=== PATIENT | female | born 1985 | race Caucasian/White ===

== ENCOUNTER 2017-03-02 15:24 | Emergency (ER) | payer SELFPAY ==
[~2017-03-02] VITALS: Ht 160 cm; Wt 78.9 kg
[~2017-03-02 15:24] MED LIST: AMOX500C2 PO; BENZ200C25 PO; CEPH250C PO; DOCU100C37 PO; DOXY100T2 PO; IBP800T PO; METR500T21 PO; NITR-65 PO; NITR100C PO; Oxycodone Hcl PO; PREN1TAB4 PO
[2017-03-02] MEDS ORDERED: FAMOTIDINE 20 MG (PEPCID) TABLET PO STA (15:46)
[2017-03-02] MEDS ORDERED: ANTACID SUSP 30 ML UDC (MYLANTA) PO ONE (16:00)
[2017-03-02] MEDS ORDERED: LIDOCAINE 2% VISCOUS 15 ML UDC PO ONE (16:00)
[2017-03-02 16:10] LABS: BILIRUBIN,URINE NEGATIVE (NEGATIVE); KETONES,URINE NEGATIVE (NEGATIVE); LEUKOCYTE ESTERASE ,URINE 2+ (NEGATIVE); NITRITE,URINE NEGATIVE (NEGATIVE); PH,URINE 5 (5-9); PROTEIN,URINE NEGATIVE (NEGATIVE); UROBILINOGEN,URINE NORMAL (NORMAL)
[2017-03-02 16:11] LABS: BASOPHILS % (AUTO) 0 % (0-10); EOSINOPHILS # (AUTO) 0.2 10^3/uL (0.0-0.3); EOSINOPHILS % (AUTO) 2 % (0-10); LYMPHOCYTES # (AUTO) 1.9 X 10^3 (1.0-4.0); LYMPHOCYTES % (AUTO) 24 % (12-44); MEAN CORPUSCULAR HEMOGLOBIN 31 PG (25-34); MEAN CORPUSCULAR HGB CONC 33 G/DL (32-36); MEAN CORPUSCULAR VOLUME 94 FL (80-99); MEAN PLATELET VOLUME 12.9 FL (7.4-10.4); MONOCYTES # (AUTO) 0.5 X 10^3 (0.0-1.0); MONOCYTES % (AUTO) 6 % (0-12); NEUTROPHILS # (AUTO) 5.3 X 10^3 (1.8-7.8); NEUTROPHILS % (AUTO) 68 % (42-75); PLATELET COUNT 217 10^3/uL (130-400); RED BLOOD COUNT 4.29 10^6/uL (4.35-5.85); RED CELL DISTRIBUTION WIDTH 12.8 % (10.0-14.5); WHITE BLOOD COUNT 7.9 10^3/uL (4.3-11.0)
[2017-03-02 16:20] LABS: ALANINE AMINOTRANSFERASE 38 U/L (0-55); ALBUMIN 4.3 GM/DL (3.2-4.5); ANION GAP 9 MMOL/L (5-14); ASPARTATE AMINO TRANSFERASE 23 U/L (5-34); BILIRUBIN,TOTAL 1.8 MG/DL (0.1-1.0); BLOOD UREA NITROGEN 17 MG/DL (7-18); BUN/CREATININE RATIO 23; CALCIUM 9.5 MG/DL (8.5-10.1); CARBON DIOXIDE 26 MMOL/L (21-32); CHLORIDE 106 MMOL/L (98-107); CREATININE SERUM 0.74 MG/DL (0.60-1.30); GFR ESTIMATED > 60; GLUCOSE 93 MG/DL (70-105); LIPASE 25 U/L (8-78); POTASSIUM 3.8 MMOL/L (3.6-5.0); SODIUM 141 MMOL/L (135-145); TOTAL PROTEIN 7.2 GM/DL (6.4-8.2)
[2017-03-02 16:26] LABS: SQUAMOUS EPITHELIAL CELL,UR 25-50 /HPF
[2017-03-02] MEDS ORDERED: OMEP20TA7 PO (16:45)
--- NOTE | 2017-03-02 16:45 | ED Abdominal Pain ---
General Chief Complaint: Abdominal/GI Problems Stated Complaint: ABDOMINAL PAIN Nursing Triage Note: PT CO OF ABD PAIN TO EPIGASTRIC AREA THRU TO BACK, AFTER EATING PIZZA TODAY, PT STATES HAS HAD DIARREHA FOR A WEEK AND STARTED FEELING SICK ON MONDAY Sepsis Screen: No Definite Risk Source of Information: Patient Exam Limitations: No Limitations History of Present Illness Time Seen By Provider: 15:40 Initial Comments This 31-year-old woman presents to emergency room with complaints of right upper quadrant and epigastric pain radiating to the back and chest. Pain started just after eating pizza today. Pain has been intermittent over the past week and seems to be associated with eating. She has had some nausea without vomiting. She did have some diarrhea with prior episodes. LMP was 3 weeks ago and she denies . Pain was 5 out of 10 earlier today and is now 2 out of 10. Allergies and Home Medications Allergies Coded Allergies: No Known Drug Allergies (Verified , 11/21/15) Home Medications Omeprazole 20 Mg Tablet.dr, 20 MG PO BID, #30 Prescribed by: LIZY CASTANEDA on 03/02/17 7117 Review of Systems Constitutional: no symptoms reported EENTM: No Symptoms Reported Respiratory: No Symptoms Reported Cardiovascular: No Symptoms Reported Gastrointestinal: See HPI Genitourinary: No Symptoms Reported Musculoskeletal: no symptoms reported Skin: no symptoms reported Psychiatric/Neurological: No Symptoms Reported Endocrine: No Symptoms Reported Past Sysbynz-Tipwej-Iuzuss Hx Patient Social History Alcohol Use: Occasionally Uses Recreational Drug Use: No Smoking Status: Current Everyday Smoker Recent Foreign Travel: No Contact w/Someone Who Travel: No Recent Infectious Disease Expo: No Recent Hopitalizations: No Immunizations Up To Date Tetanus Booster (TDap): Unknown Surgeries HX Surgeries: Yes ( x 2 and CKC) Surgeries: Abdominal (Left salpingo-oophorectomy for tubo-ovarian cyst), Section Respiratory Hx Respiratory Disorders: No Cardiovascular Hx Cardiac Disorders: No Neurological Hx Neurological Disorders: No Reproductive System Hx Reproductive Disorders: Yes Sexually Transmitted Disease: Yes (HPV, HSV, chlamydia) Genitourinary Hx Genitourinary Disorders: No Gastrointestinal Hx Gastrointestinal Disorders: No Musculoskeletal Hx Musculoskeletal Disorders: No Endocrine Hx Endocrine Disorders: No HEENT HX ENT Disorders: No Cancer Hx Cancer: No Psychosocial Hx Psychiatric Problems: No Integumentary HX Skin/Integumentary Disorder: Yes Skin/Integumentary Disorders: Herpes Blood Transfusions Hx Blood Disorders: No Adverse Reaction to a Blood Tr: No Family Medical History Significant Family History: No Pertinent Family Hx Family Medial History: Anxiety disorder G8 SISTER Diabetes mellitus 19 FATHER FH: anemia G8 SISTER FHx: lung disease 19 MOTHER Psychiatric condition G8 SISTER Physical Exam Vital Signs VS - Last 72 Hours, by Label 03/02/17 03/02/17 15:35 16:51 Temp 98.1 Pulse 85 77 Resp 18 16 B/P (MAP) 143/78 Pulse Ox 98 99 O2 Delivery Room Air Capillary Refill : Less Than 3 Seconds General Appearance: WD/WN, no apparent distress HEENT: PERRL/EOMI, normal ENT inspection, pharynx normal Neck: normal inspection Respiratory: lungs clear, normal breath sounds, no respiratory distress, no accessory muscle use Cardiovascular: regular rate, rhythm, no edema, no murmur Gastrointestinal: normal bowel sounds, soft, no organomegaly, tenderness ( Epigastrium) Extremities: normal inspection, no pedal edema Neurologic/Psychiatric: rv repairer II-XII nml as tested, no motor/sensory deficits, alert, normal mood/affect, oriented x 3 Skin: normal color, warm/dry Progress/Results/Core Measures Results/Orders Lab Results Laboratory Tests Test 03/02/17 15:35 03/02/17 15:45 Range/Units Urine Color YELLOW Urine Clarity SLIGHTLY CLOUDY Urine pH 5 5-9 Urine Specific [place] 1.025 H 1.016-1.022 Urine Protein NEGATIVE NEGATIVE Urine Glucose (UA) NEGATIVE NEGATIVE Urine Ketones NEGATIVE NEGATIVE Urine Nitrite NEGATIVE NEGATIVE Urine Bilirubin NEGATIVE NEGATIVE Urine Urobilinogen NORMAL NORMAL MG/DL Urine Leukocyte Esterase 2+ H NEGATIVE Urine RBC (Auto) 1+ H NEGATIVE Urine RBC RARE /HPF Urine WBC 2-5 /HPF Urine Squamous Epithelial Cells 25-50 H /HPF Urine Crystals NONE /LPF Urine Bacteria LARGE H /HPF Urine Casts NONE /LPF Urine Mucus NEGATIVE /LPF Urine Culture Indicated YES White Blood Count 7.9 4.3-11.0 10^3/uL Red Blood Count 4.29 L 4.35-5.85 10^6/uL Hemoglobin 13.3 11.5-16.0 G/DL Hematocrit 40 35-52 % Mean Corpuscular Volume 94 80-99 FL Mean Corpuscular Hemoglobin 31 25-34 PG Mean Corpuscular Hemoglobin Concent 33 32-36 G/DL Red Cell Distribution Width 12.8 10.0-14.5 % Platelet Count 217 130-400 10^3/uL Mean Platelet Volume 12.9 H 7.4-10.4 FL Neutrophils (%) (Auto) 68 42-75 % Lymphocytes (%) (Auto) 24 12-44 % Monocytes (%) (Auto) 6 0-12 % Eosinophils (%) (Auto) 2 0-10 % Basophils (%) (Auto) 0 0-10 % Neutrophils # (Auto) 5.3 1.8-7.8 X 10^3 Lymphocytes # (Auto) 1.9 1.0-4.0 X 10^3 Monocytes # (Auto) 0.5 0.0-1.0 X 10^3 Eosinophils # (Auto) 0.2 0.0-0.3 10^3/uL Basophils # (Auto) 0.0 0.0-0.1 10^3/uL Sodium Level 141 135-145 MMOL/L Potassium Level 3.8 3.6-5.0 MMOL/L Chloride Level 106 98-107 MMOL/L Carbon Dioxide Level 26 21-32 MMOL/L Anion Gap 9 5-14 MMOL/L Blood Urea Nitrogen 17 7-18 MG/DL Creatinine 0.74 0.60-1.30 MG/DL Estimat Glomerular Filtration Rate > 60 BUN/Creatinine Ratio 23 Glucose Level 93 70-105 MG/DL Calcium Level 9.5 8.5-10.1 MG/DL Total Bilirubin 1.8 H 0.1-1.0 MG/DL Aspartate Amino Transf (AST/SGOT) 23 5-34 U/L Alanine Aminotransferase (ALT/SGPT) 38 0-55 U/L Alkaline Phosphatase 55 40-136 U/L C-Reactive Protein High Sensitivity 0.40 0.00-0.50 MG/DL Total Protein 7.2 6.4-8.2 GM/DL Albumin 4.3 3.2-4.5 GM/DL Lipase 25 8-78 U/L Serum Test, Qualitative NEGATIVE NEGATIVE Micro Results Microbiology 03/02/17 Urine Culture - Preliminary, Resulted My Orders Orders - LIZY GUAJARDO MD Cbc With Automated Diff (03/02/17 15:46) Comprehensive Metabolic Panel (03/02/17 15:46) Hs C Reactive Protein (03/02/17 15:46) Hcg,Qualitative Serum (03/02/17 15:46) Ua Culture If Indicated (03/02/17 15:46) Saline Lock/Iv-Start (03/02/17 15:46) Lipase (03/02/17 15:46) Lidocaine 2% Viscous 15 Ml (Xylocaine Vi (03/02/17 16:00) Famotidine Tablet (Pepcid Tablet) (03/02/17 15:46) Antacid Suspension (Mylanta Suspension (03/02/17 16:00) Urine Culture (03/02/17 15:35) Medications Given in ED Vital Signs/I&O Vital Sign - Last 12Hours 03/02/17 03/02/17 15:35 16:51 Temp 98.1 Pulse 85 77 Resp 18 16 B/P (MAP) 143/78 Pulse Ox 98 99 O2 Delivery Room Air Blood Pressure Mean: 99 Progress Note : Progress Note Pain and tenderness improved with GI cocktail and Pepcid suggesting gastritis. Workup was unremarkable. Patient was advised to continue workup as an outpatient and possibly obtain a gallbladder ultrasound. PPI therapy and dietary restrictions were discussed. Departure Impression Impression: Primary Impression: Epigastric pain Disposition: HOME, SELF-CARE Condition: Improved Departure-Patient Inst. Referrals: [facility] (PCP/Family) Primary Care Physician Patient Instructions: Acute Abdomen (Belly Pain), Adult (DC), Gastritis (DC) Add. Discharge Instructions: Use your antacid as prescribed for at least 2 weeks. Avoid the following: Eating large meals, eating close to bedtime, fatty or greasy foods, caffeine, carbonation, citrus fruits and juices, chocolate, tomato products, alcohol, tobacco, mint, NSAID medications such as ibuprofen or naproxen, spicy foods, or anything else you know irritates your stomach. Follow-up with your primary care provider. If you continue to have pain despite taking antacid medications, you may need an ultrasound of the gallbladder. Return to emergency room if symptoms worsen. All discharge instructions reviewed with patient and/or family. Voiced understanding. Scripts Omeprazole (Omeprazole) 20 Mg Tablet. 20 MG PO BID, #30 TAB Prov: LIZY GUAJARDO MD 03/02/17 LIZY GUAJARDO MD Mar 02, 2017 16:45
[2017-03-02 16:51] VITALS: BP 131/81
== END 2017-03-02 16:51 | disposition home or self-care (01) ==
LOC: EDUNIT# 15:24 → ER 15:26
DX: R10.13 Epigastric pain (principal); F17.210 Nicotine dependence, cigarettes, uncomplicated
CPT/HCPCS: 36415; 80053; 81000; 83690; 84703; 85025; 86141; 87088

== ENCOUNTER 2018-03-05 23:44 | Emergency (ER) | payer SELFPAY ==
[~2018-03-05] VITALS: Ht 160 cm; Wt 79.4 kg
[~2018-03-05 23:44] MED LIST changes: +OMEP20TA7 PO
--- OUTSIDE RECORDS SUMMARY | 2018-03-05 23:51 | XMS REPORT ---
Author Author ALEX WATTS Organization [employer] Address Unknown Phone Unavailable Care Team Providers Care Glassware Maker Name Role Phone ALEX WATTS CP Unavailable Allergies, Adverse Reactions, Alerts Substance Reaction Event Type N.K.D.A. Info Not Available Non Drug Allergy Problems Problem Type Condition ICD-9 Code Onset Dates Condition Status Assessment Gingivitis 523.10 Active Problem Rash and other nonspecific skin eruption 782.1 Active Medications No Known Medications Procedures Procedure Coding System Code Date Office Visit, Est Pt., Level 3 CPT-4 24218 Mar 18, 2015 Vital Signs Date/Time: Mar 18, 2015 Temperature 98.1 F Weight 147.0 lbs Height 62 in BMI 26.88 Index Blood Pressure Diastolic 88 mmHg Blood Pressure Systolic 134 mmHg Cardiac Monitoring Heart Rate 68 bpm Results No Known Results Summary Purpose [employer] Submission
--- OUTSIDE RECORDS SUMMARY | 2018-03-05 23:51 | XMS REPORT ---
Author Author ROSHAN REN Organization [employer] Address Unknown Phone Unavailable Care Team Providers Care Air Conditioning Supervisor Name Role Phone ROSHAN REN CP Unavailable Allergies No Known Allergies Problems Problem Type Condition ICD-9 Code Onset Dates Condition Status Assessment Dental examination V72.2 Active Problem Rash and other nonspecific skin eruption 782.1 Active Medications No Known Medications Procedures Procedure Coding System Code Date INTRAORL-PERIAPICAL 1 FILM 92761 CPT-4 D0220 Apr 01, 2015 INTRAORL-PERIAPICAL EA ADD FILM CPT-4 D0230 Apr 01, 2015 COMP ORAL EVALUATION - NEW/EST PT CPT-4 D0150 Apr 01, 2015 Periodontal scaling & root CPT-4 D4341 Apr 01, 2015 BITEWINGS - FOUR FILMS CPT-4 D0274 Apr 01, 2015 Periodontal scaling & root CPT-4 D4341 Apr 01, 2015 INTRAORL-PERIAPICAL EA ADD FILM CPT-4 D0230 Apr 01, 2015 INTRAORL-PERIAPICAL EA ADD FILM CPT-4 D0230 Apr 01, 2015 INTRAORL-PERIAPICAL EA ADD FILM CPT-4 D0230 Apr 01, 2015 INTRAORL-PERIAPICAL EA ADD FILM CPT-4 D0230 Apr 01, 2015 Results No Known Results Summary Purpose [employer] Submission
--- OUTSIDE RECORDS SUMMARY | 2018-03-05 23:51 | XMS REPORT ---
Author Author BISMARK BARRETO Organization [employer] Address Unknown Phone Unavailable Care Team Providers Care Landscape Architect Name Role Phone BISMARK BARRETO CP Unavailable Allergies, Adverse Reactions, Alerts Substance Reaction Event Type N.K.D.A. Info Not Available Non Drug Allergy Problems Problem Type Condition Code Onset Dates Condition Status Assessment Gastroenteritis K52.9 Active Problem Rash and other nonspecific skin eruption 782.1 Active Medications No Known Medications Procedures Procedure Coding System Code Date Office Visit, Est Pt., Level 3 CPT-4 97861 Sep 10, 2015 Vital Signs Date/Time: Sep 10, 2015 Temperature 98.8 F Weight 161.7 lbs Height 62 in BMI 29.57 Index Blood Pressure Diastolic 80 mmHg Blood Pressure Systolic 107 mmHg Cardiac Monitoring Heart Rate 88 bpm Results No Known Results Summary Purpose [employer] Submission
--- OUTSIDE RECORDS SUMMARY | 2018-03-05 23:51 | XMS REPORT ---
Author Author RAJANI ELIZABETH [facility] [employer] Address Unknown Phone Unavailable Care Team Providers Care Bench Scientist Name Role Phone RAJANI ELIZABETH CP Unavailable Allergies, Adverse Reactions, Alerts Substance Reaction Event Type N.K.D.A. Info Not Available Non Drug Allergy Problems Problem Type Condition Code Onset Dates Condition Status Assessment Lower abdominal pain R10.30 Active Assessment Acute urinary tract infection N39.0 Active Problem Rash and other nonspecific skin eruption 782.1 Active Medications Medication Code System Code Instructions Start Date End Date Status Dosage Macrobid [facility] [address]-02 100 MG Orally every 12 hrs November 20, 2015 November 27, 2015 1 capsule with food AZO Urinary Pain [facility] 74143-96989 97.5 MG Orally Three times a day 2 tablets after meals Procedures Procedure Coding System Code Date URINE CULTURE/COLONY COUNT CPT-4 61980 November 20, 2015 Office Visit, Est Pt., Level 3 CPT-4 45478 November 20, 2015 URINALYSIS, AUTO, W/O SCOPE CPT-4 83481 November 20, 2015 Vital Signs Date/Time: November 20, 2015 Temperature 98.7 F Weight 165.2 lbs Height 62 in BMI 30.21 Index Blood Pressure Diastolic 62 mmHg Blood Pressure Systolic 110 mmHg Cardiac Monitoring Heart Rate 98 bpm Results Name Result Date Reference Range Unit Abnormality Flag UA LONG DIP (IN HOUSE) ----EDELMIRA negative 20151120 ----NIT positive 20151120 ----Exp date 20151120 ----Lot # [id number] ----SG >=1.030 20151120 ----KET negative 20151120 ----ELIZABETH 1+ 20151120 ----GLU negative 20151120 ----Odor none 20151120 ----pH 5.5 20151120 ----BLO 2+ 20151120 ----URO 2.0 20151120 ----Protein 2+ 20151120 ----Lot # [id number] ----Exp date 20151120 ----Clarity clear 20151120 ----Color orange 20151120 Summary Purpose [employer] Submission
--- OUTSIDE RECORDS SUMMARY | 2018-03-05 23:52 | XMS REPORT | Continuity of Care Document ---
Author Author [facility] Address Unknown Phone Unavailable Allergies Active Description Code Type Severity Reaction Onset Reported/Identified Relationship to Patient Clinical Status Yes No Known Drug Allergies [id number] Drug Allergy Unknown N/A 11/21/2015 Medications There is no data. Problems Date Dx Coded Attending Type Code Diagnosis Diagnosed By 04/02/2009 078.10 VIRAL WARTS, UNSPECIFIED 04/02/2009 WILLIAM CRONIN APRN 078.10 VIRAL WARTS, UNSPECIFIED 04/02/2009 ANNETTA ROSS APRN 078.10 VIRAL WARTS, UNSPECIFIED 04/02/2009 WILLIAM CRONIN APRN 078.10 VIRAL WARTS, UNSPECIFIED 04/02/2009 HEIKE RIVERA DO 078.10 VIRAL WARTS, UNSPECIFIED 04/02/2009 ANNETTA ROSS APRN 078.10 VIRAL WARTS, UNSPECIFIED 12/05/2010 Ot 644.13 THREAT LABOR NEC-ANTEPAR 12/10/2010 Ot 654.21 PREV DELIVRY W/ OR W/O MENT ANT 12/10/2010 Ot V27.0 DELIVER- SINGLE LIVEBORN 01/20/2012 564.00 CONSTIPATION 01/20/2012 599.0 URINARY TRACT INFECTION 01/20/2012 789.00 abdominal pain 01/20/2012 WILLIAM CRONIN APRN A 564.00 CONSTIPATION 01/20/2012 WILLIAM CRONIN APRN A 599.0 URINARY TRACT INFECTION 01/20/2012 WILLIAM CRONIN APRN 789.00 abdominal pain 01/20/2012 ANNETTA ROSS APRN R 564.00 CONSTIPATION 01/20/2012 ANNETTA ROSS APRN 599.0 URINARY TRACT INFECTION 01/20/2012 ANNETTA ROSS APRN R 789.00 abdominal pain 01/20/2012 WILLIAM CRONIN APRN A 564.00 CONSTIPATION 01/20/2012 ROSEANNE UNIX DEVELOPER, WILLIAM A 599.0 URINARY TRACT INFECTION 01/20/2012 ROSEANNE UNIX DEVELOPER, WILLIAM A 789.00 abdominal pain 01/20/2012 RIVERA DO, HEIKE K 564.00 CONSTIPATION 01/20/2012 RIVERA DO, HEIKE K 599.0 URINARY TRACT INFECTION 01/20/2012 RIVERA DO, HEIKE K 789.00 ABDOMINAL PAIN 01/20/2012 VANDANA NAGEL, ANNETTA R 564.00 CONSTIPATION 01/20/2012 VANDANA AIKENN, ANNETTA R 599.0 URINARY TRACT INFECTION 01/20/2012 VANDANA AIKENN, ANNETTA R 789.00 ABDOMINAL PAIN 05/22/2012 Ot 461.9 ACUTE SINUSITIS NOS 05/22/2012 Ot 786.2 COUGH 05/22/2012 Ot 786.52 PAINFUL RESPIRATION 03/26/2013 054.10 GENITAL HERPES UNSPECIFIED 03/26/2013 782.1 RASH 03/26/2013 788.1 DYSURIA 03/26/2013 WILLIAM CRONIN APRN A 054.10 GENITAL HERPES UNSPECIFIED 03/26/2013 ROSEANNEBRI Dodge APRNIDI A 782.1 RASH 03/26/2013 ROSEANNE APRN, WILLIAM A 788.1 DYSURIA 03/26/2013 VANDANA NAGEL, ANNETTA R 054.10 GENITAL HERPES UNSPECIFIED 03/26/2013 VANDANA NAGEL, ANNETTA R 782.1 RASH 03/26/2013 VANDANA NAGEL, ANNETTA R 788.1 DYSURIA 03/26/2013 BRI CRONIN APRNIDI A 054.10 GENITAL HERPES UNSPECIFIED 03/26/2013 ROSEANNEBRI Dodge APRNIDI A 782.1 RASH 03/26/2013 ROSEANNE APRN, WILLIAM A 788.1 DYSURIA 03/26/2013 RIVERA DO, HEIKE K 054.10 GENITAL HERPES UNSPECIFIED 03/26/2013 RIVERA DO, HEIKE K 782.1 RASH 03/26/2013 RIVERA DO, HEIKE K 788.1 DYSURIA 03/26/2013 VANDANA NAGEL, ANNETTA R 054.10 GENITAL HERPES UNSPECIFIED 03/26/2013 VANDANA NAGEL, ANNETTA R 782.1 RASH 03/26/2013 VANDANA NAGEL, ANNETTA R 788.1 DYSURIA 05/06/2013 ROSEANNE UNIX DEVELOPER, WILLIAM A V25.42 CONTRACEPTION SURVEILLANCE (IUD) 05/06/2013 ROSEANNE UNIX DEVELOPER, WILLIAM A V74.5 STD SCREEN 05/06/2013 ROSEANNE UNIX DEVELOPER, WILLIAM A V76.10 BREAST CANCER SCREENING 05/06/2013 ROSEANNE UNIX DEVELOPER, WILLIAM A V76.2 CERVICAL CANCER SCREENING (PAP SMEAR) 05/06/2013 VANDANA NAGEL, ANNETTA R V25.42 CONTRACEPTION SURVEILLANCE (IUD) 05/06/2013 VANDANA UNIX DEVELOPER, ANNETTA R V74.5 STD SCREEN 05/06/2013 VANDANA UNIX DEVELOPER, ANNETTA R V76.10 BREAST CANCER SCREENING 05/06/2013 VANDANA AIKENN, ANNETTA R V76.2 CERVICAL CANCER SCREENING (PAP SMEAR) 05/06/2013 ROSEANNE NAGEL, WILLIAM A V25.42 CONTRACEPTION SURVEILLANCE (IUD) 05/06/2013 ROSEANNE NAGEL, WILLIAM A V74.5 STD SCREEN 05/06/2013 ROSEANNE NAGEL, WILLIAM A V76.10 BREAST CANCER SCREENING 05/06/2013 ROSEANNE NAGEL, WILLIAM A V76.2 CERVICAL CANCER SCREENING (PAP SMEAR) 05/06/2013 MARLYN RIVERA DOA K V25.42 CONTRACEPTION SURVEILLANCE (IUD) 05/06/2013 MARLYN RIVERA DOA K V74.5 STD SCREEN 05/06/2013 MARLYN RIVERA DOA K V76.10 BREAST CANCER SCREENING 05/06/2013 MARLYN RIVERA DOA K V76.2 CERVICAL CANCER SCREENING (PAP SMEAR) 05/06/2013 VANDANA NAGEL, ANNETTA R V25.42 CONTRACEPTION SURVEILLANCE (IUD) 05/06/2013 VANDANA NAGEL, ANNETTA R V74.5 STD SCREEN 05/06/2013 VANDANA NAGEL, ANNETTA R V76.10 BREAST CANCER SCREENING 05/06/2013 VANDANA AIKENN, ANNETTA R V76.2 CERVICAL CANCER SCREENING (PAP SMEAR) 10/31/2013 VANDANA NAGEL, ANNETTA R 034.0 STREPTOCOCCAL SORE THROAT 10/31/2013 VANDANA AIKENN, ANNETTA R 786.2 COUGH 10/31/2013 ROSEANNE NAGEL, WILLIAM A 034.0 STREPTOCOCCAL SORE THROAT 10/31/2013 ROSEANNE NAGEL, WILLIAM A 786.2 COUGH 10/31/2013 RIVERA DO, HEIKE K 034.0 STREPTOCOCCAL SORE THROAT 10/31/2013 RIVERA DO, HEIKE K 786.2 COUGH 10/31/2013 VICKY ROSS APRNINA R 034.0 STREPTOCOCCAL SORE THROAT 10/31/2013 VICKY ROSS APRNINA R 786.2 COUGH 12/10/2013 ROSEANNE APRN, WILLIAM A 789.06 ABDOMINAL PAIN EPIGASTRIC 12/10/2013 RIVERA DO, HEIKE K 789.06 ABDOMINAL PAIN EPIGASTRIC 12/10/2013 VANDANA NAGEL ANNETTA R 789.06 ABDOMINAL PAIN EPIGASTRIC 05/27/2014 RIVERA DO, HEIKE K 461.9 SINUSITIS ACUTE 05/27/2014 RIVERA DO, HEIKE K 535.00 ACUTE GASTRITIS (WITHOUT HEMORRHAGE) 05/27/2014 ANNETTA ROSS APRN R 461.9 SINUSITIS ACUTE 05/27/2014 VANDANA NAGEL, ANNETTA R 535.00 ACUTE GASTRITIS (WITHOUT HEMORRHAGE) 06/12/2014 ANNETTA ROSS APRN R 388.70 OTALGIA UNSPECIFIED 06/12/2014 ANNETTA ROSS APRN R 786.2 COUGH 11/21/2015 Ot 646.83 PREG COMPL NEC-ANTEPART 11/21/2015 Ot 789.00 ABDOMINAL PAIN, UNSPECIFIED SITE 11/21/2015 Ot 649.63 UTERINE SIZE DATE DISCREPANCY, ANTEPARTU 11/21/2015 Ot 641.03 PLACENTA PREVIA-ANTEPART 11/21/2015 Ot V07.2 PROPHYLACT IMMUNOTHERAPY 11/21/2015 Ot 654.23 PREV DELIVERY, ANTEPARTUM COND 11/21/2015 Ot V72.63 PRE- PROCEDURAL LABORATORY EXAMINATION 11/21/2015 Ot V74.8 SCREEN- BACTERIAL DIS NEC 11/21/2015 Ot 646.83 PREG COMPL NEC-ANTEPART 11/21/2015 Ot 789.00 ABDOMINAL PAIN, UNSPECIFIED SITE 11/21/2015 Ot 649.63 UTERINE SIZE DATE DISCREPANCY, ANTEPARTU 11/21/2015 Ot 641.03 PLACENTA PREVIA-ANTEPART 11/21/2015 Ot V07.2 PROPHYLACT IMMUNOTHERAPY 11/21/2015 Ot 654.23 PREV DELIVERY, ANTEPARTUM COND 11/21/2015 Ot V72.63 PRE- PROCEDURAL LABORATORY EXAMINATION 11/21/2015 Ot V74.8 SCREEN- BACTERIAL DIS NEC 11/23/2015 Ot 649.63 UTERINE SIZE DATE DISCREPANCY, ANTEPARTU 11/23/2015 Ot 641.03 PLACENTA PREVIA-ANTEPART 11/23/2015 Ot V07.2 PROPHYLACT IMMUNOTHERAPY 11/23/2015 Ot 654.23 PREV DELIVERY, ANTEPARTUM COND 11/23/2015 Ot V72.63 PRE- PROCEDURAL LABORATORY EXAMINATION 11/23/2015 Ot V74.8 SCREEN- BACTERIAL DIS NEC 11/26/2015 LORIN COOL MD Ot A41.51 SEPSIS DUE TO ESCHERICHIA COLI [E. COLI] 11/26/2015 LORIN COOL MD N Ot A42.7 ACTINOMYCOTIC SEPSIS 11/26/2015 SILVINA SAHNI LORIN N Ot D64.9 ANEMIA, UNSPECIFIED 11/26/2015 SILVINA SAHNI LORIN N Ot F17.210 NICOTINE DEPENDENCE, CIGARETTES, UNCOMPL 11/26/2015 LORIN COOL MD N Ot J81.1 CHRONIC PULMONARY EDEMA 11/26/2015 LORIN COOL MD N Ot J90 PLEURAL EFFUSION, NOT ELSEWHERE CLASSIFI 11/26/2015 SILVINA SAHNI LORIN N Ot J98.11 ATELECTASIS 11/26/2015 SILVINA SAHNI LORIN N Ot N39.0 URINARY TRACT INFECTION, SITE NOT SPECIF 11/26/2015 SILVINA SAHNI LORIN N Ot N70.93 SALPINGITIS AND OOPHORITIS, UNSPECIFIED 11/26/2015 SILVINA SAHNI LORIN N Ot N73.6 FEMALE PELVIC PERITONEAL ADHESIONS (POST 11/26/2015 SILVINA SAHNI LORIN N Ot Z97.5 PRESENCE OF (INTRAUTERINE) CONTRACEPTIVE 12/18/2015 ALICIA COOL MDIN N Ot A41.51 SEPSIS DUE TO ESCHERICHIA COLI [E. COLI] 12/18/2015 SILVINA SAHNI LORIN N Ot A42.7 ACTINOMYCOTIC SEPSIS 12/18/2015 SILVINA SAHNI LORIN N Ot D64.9 ANEMIA, UNSPECIFIED 12/18/2015 SILVINA SAHNI LORIN N Ot F17.210 NICOTINE DEPENDENCE, CIGARETTES, UNCOMPL 12/18/2015 SILVINA SAHNI LORIN N Ot J81.1 CHRONIC PULMONARY EDEMA 12/18/2015 SILVINA SAHNI LORIN N Ot J90 PLEURAL EFFUSION, NOT ELSEWHERE CLASSIFI 12/18/2015 ALICIA COOL MDIN N Ot J98.11 ATELECTASIS 12/18/2015 LORIN COOL MD N Ot N39.0 URINARY TRACT INFECTION, SITE NOT SPECIF 12/18/2015 ALICIA COOL MDIN N Ot N70.93 SALPINGITIS AND OOPHORITIS, UNSPECIFIED 12/18/2015 LORIN COOL MD N Ot N73.6 FEMALE PELVIC PERITONEAL ADHESIONS (POST 12/18/2015 ALICIA COOL MDIN N Ot Z97.5 PRESENCE OF (INTRAUTERINE) CONTRACEPTIVE 12/18/2015 ALICIA COOL MDIN N Ot A41.51 SEPSIS DUE TO ESCHERICHIA COLI [E. COLI] 12/18/2015 LORIN COOL MD N Ot A42.7 ACTINOMYCOTIC SEPSIS 12/18/2015 ALICIA COOL MDIN N Ot D64.9 ANEMIA, UNSPECIFIED 12/18/2015 LORIN COOL MD N Ot F17.210 NICOTINE DEPENDENCE, CIGARETTES, UNCOMPL 12/18/2015 SILVINA SAHNI LORIN N Ot J81.1 CHRONIC PULMONARY EDEMA 12/18/2015 ALICIA COOL MDIN N Ot J90 PLEURAL EFFUSION, NOT ELSEWHERE CLASSIFI 12/18/2015 ALICIA COOL MDIN N Ot J98.11 ATELECTASIS 12/18/2015 LORIN COOL MD N Ot N39.0 URINARY TRACT INFECTION, SITE NOT SPECIF 12/18/2015 LORIN COOL MD N Ot N70.93 SALPINGITIS AND OOPHORITIS, UNSPECIFIED 12/18/2015 SILVINA SAHNI LORIN N Ot N73.6 FEMALE PELVIC PERITONEAL ADHESIONS (POST 12/18/2015 ALICIA COOL MDIN N Ot Z97.5 PRESENCE OF (INTRAUTERINE) CONTRACEPTIVE 12/18/2015 SILVINA SAHNI LORIN N Ot A41.51 SEPSIS DUE TO ESCHERICHIA COLI [E. COLI] 12/18/2015 SILVINA SAHNI LORIN N Ot A42.7 ACTINOMYCOTIC SEPSIS 12/18/2015 SILVINA SAHNI LORIN N Ot D64.9 ANEMIA, UNSPECIFIED 12/18/2015 SILVINA SAHNI LORIN N Ot F17.210 NICOTINE DEPENDENCE, CIGARETTES, UNCOMPL 12/18/2015 SILVINA SAHNI, LORIN N Ot J81.1 CHRONIC PULMONARY EDEMA 12/18/2015 SILVINA SAHNI, LORIN N Ot J90 PLEURAL EFFUSION, NOT ELSEWHERE CLASSIFI 12/18/2015 SILVINA SAHNI, LORIN N Ot J98.11 ATELECTASIS 12/18/2015 SILVINA SAHNI, LORIN N Ot N39.0 URINARY TRACT INFECTION, SITE NOT SPECIF 12/18/2015 SILVINA SAHNI, LORIN N Ot N70.93 SALPINGITIS AND OOPHORITIS, UNSPECIFIED 12/18/2015 SILVINA SAHNI, LORIN N Ot N73.6 FEMALE PELVIC PERITONEAL ADHESIONS (POST 12/18/2015 SILVINA SAHNI, LORIN Dodge Ot Z97.5 PRESENCE OF (INTRAUTERINE) CONTRACEPTIVE 03/01/2016 Ot 641.03 PLACENTA PREVIA-ANTEPART 03/01/2016 Ot V07.2 PROPHYLACT IMMUNOTHERAPY 03/01/2016 Ot 654.23 PREV DELIVERY, ANTEPARTUM COND 03/01/2016 Ot V72.63 PRE- PROCEDURAL LABORATORY EXAMINATION 03/01/2016 Ot V74.8 SCREEN- BACTERIAL DIS NEC 03/02/2017 BENNETT SAHNI, LIZY Razo Ot F17.210 NICOTINE DEPENDENCE, CIGARETTES, UNCOMPL 03/02/2017 BENNETT SAHNI, LIZY Razo Ot R10.13 EPIGASTRIC PAIN 03/03/2017 BENNETT SAHNI, LIZY Razo Ot F17.210 NICOTINE DEPENDENCE, CIGARETTES, UNCOMPL 03/03/2017 LIZY GUAJARDO MD Ot R10.13 EPIGASTRIC PAIN 03/08/2017 BENNETT SAHNI, LIZY Razo Ot F17.210 NICOTINE DEPENDENCE, CIGARETTES, UNCOMPL 03/08/2017 LIZY GUAJARDO MD Ot R10.13 EPIGASTRIC PAIN 06/30/2017 Ot 654.23 PREV DELIVERY, ANTEPARTUM COND 06/30/2017 Ot V72.63 PRE- PROCEDURAL LABORATORY EXAMINATION 06/30/2017 Ot V74.8 SCREEN- BACTERIAL DIS NEC 07/31/2017 Ot 654.23 PREV DELIVERY, ANTEPARTUM COND 07/31/2017 Ot V72.63 PRE- PROCEDURAL LABORATORY EXAMINATION 07/31/2017 Ot V74.8 SCREEN- BACTERIAL DIS NEC 09/28/2017 Ot 644.13 THREAT LABOR NEC-ANTEPAR 10/29/2017 Ot 644.13 THREAT LABOR NEC-ANTEPAR 01/28/2018 Ot 644.13 THREAT LABOR NEC-ANTEPAR Procedures Code Description Performed By Performed On 72.9 12/08/2010 74.1 12/08/2010 29725 TRICHOMONAS (IN-HOUSE) 05/06/2013 22610 CULTURE UROGENITAL 05/08/2013 15560 GC/CHLAM PROBE (STATE) 05/08/2013 30004 PAP SMEAR 05/08/2013 Q0091 PAP SMEAR OBTAIN SMEAR 05/08/2013 77017 STREP A (IN-HOUSE) 10/31/2013 68694 INFLUENZA A & B (IN-HOUSE) 10/31/2013 36328 CBC 06/17/2014 [id number] DRAINAGE OF PELVIC CAVITY WITH DRAIN DEV 11/23/2015 2NY10CG RELEASE LEFT OVARY, PERCUTANEOUS ENDOSCO 11/24/2015 [id number] RELEASE LEFT FALLOPIAN TUBE, PERC ENDO A 11/24/2015 8WV95CG RELEASE UTERUS, PERCUTANEOUS ENDOSCOPIC 11/24/2015 [id number] RESECTION OF LEFT OVARY, PERCUTANEOUS EN 11/24/2015 6UX15NH RESECTION OF LEFT FALLOPIAN TUBE, PERC E 11/24/2015 [id number] INTRODUCE OF ADHESION BARRIER INTO FEM R 11/24/2015 Results Test Result Range Complete urinalysis with reflex to culture - 03/02/17 15:35 Urine color determination YELLOW NRG Urine clarity determination SLIGHTLY CLOUDY NRG Urine pH measurement by test strip 5 5-9 Specific gravity of urine by test strip 1.025 1.016- 1.022 Urine protein assay by test strip, semi-quantitative NEGATIVE NEGATIVE Urine glucose detection by automated test strip NEGATIVE NEGATIVE Erythrocytes detection in urine sediment by light microscopy 1+ NEGATIVE Urine ketones detection by automated test strip NEGATIVE NEGATIVE Urine nitrite detection by test strip NEGATIVE NEGATIVE Urine total bilirubin detection by test strip NEGATIVE NEGATIVE Urine urobilinogen measurement by automated test strip (mass/volume) NORMAL NORMAL Urine leukocyte esterase detection by dipstick 2+ NEGATIVE Automated urine sediment erythrocyte count by microscopy (number/high power field) RARE NRG Automated urine sediment leukocyte count by microscopy (number/high power field ) [HPF] NRG Bacteria detection in urine sediment by light microscopy LARGE NRG Squamous epithelial cells detection in urine sediment by light microscopy 25-50 NRG Crystals detection in urine sediment by light microscopy NONE NRG Casts detection in urine sediment by light microscopy NONE NRG Mucus detection in urine sediment by light microscopy NEGATIVE NRG Complete urinalysis with reflex to culture YES NRG Bacterial urine culture - 03/02/17 15:35 URINE CULTURE RESULTS <10,000/ML NRG Serum or plasma choriogonadotropin ( test) detection - 03/02/17 15:45 Serum or plasma choriogonadotropin ( test) detection NEGATIVE NEGATIVE Complete blood count (CBC) with automated white blood cell (WBC) differential - 03/02/17 15:45 Blood leukocytes automated count (number/volume) 7.9 10*3/uL 4.3-11.0 Blood erythrocytes automated count (number/volume) 4.29 10*6/uL 4.35-5.85 Venous blood hemoglobin measurement (mass/volume) 13.3 g/dL 11.5-16.0 Blood hematocrit (volume fraction) 40 % 35-52 Automated erythrocyte mean corpuscular volume 94 [foz_us] 80-99 Automated erythrocyte mean corpuscular hemoglobin (mass per erythrocyte) 31 pg 25-34 Automated erythrocyte mean corpuscular hemoglobin concentration measurement ( mass/volume) 33 g/dL 32-36 Automated erythrocyte distribution width ratio 12.8 % 10.0-14.5 Automated blood platelet count (count/volume) 217 10*3/uL 130-400 Automated blood platelet mean volume measurement 12.9 [foz_us] 7.4-10.4 Automated blood neutrophils/100 leukocytes 68 % 42-75 Automated blood lymphocytes/100 leukocytes 24 % 12-44 Blood monocytes/100 leukocytes 6 % 0-12 Automated blood eosinophils/100 leukocytes 2 % 0-10 Automated blood basophils/100 leukocytes 0 % 0-10 Blood neutrophils automated count (number/volume) 5.3 10*3 1.8-7.8 Blood lymphocytes automated count (number/volume) 1.9 10*3 1.0-4.0 Blood monocytes automated count (number/volume) 0.5 10*3 0.0-1.0 Automated eosinophil count 0.2 10*3/uL 0.0-0.3 Automated blood basophil count (count/volume) 0.0 10*3/uL 0.0-0.1 Comprehensive metabolic panel - 03/02/17 15:45 Serum or plasma sodium measurement (moles/volume) 141 mmol/L 135-145 Serum or plasma potassium measurement (moles/volume) 3.8 mmol/L 3.6-5.0 Serum or plasma chloride measurement (moles/volume) 106 mmol/L 98-107 Carbon dioxide 26 mmol/L 21-32 Serum or plasma anion gap determination (moles/volume) 9 mmol/L 5-14 Serum or plasma urea nitrogen measurement (mass/volume) 17 mg/dL 7-18 Serum or plasma creatinine measurement (mass/volume) 0.74 mg/dL 0.60-1.30 Serum or plasma urea nitrogen/creatinine mass ratio 23 NRG Serum or plasma creatinine measurement with calculation of estimated glomerular filtration rate > NRG Serum or plasma glucose measurement (mass/volume) 93 mg/dL 70-105 Serum or plasma calcium measurement (mass/volume) 9.5 mg/dL 8.5-10.1 Serum or plasma total bilirubin measurement (mass/volume) 1.8 mg/dL 0.1-1.0 Serum or plasma alkaline phosphatase measurement (enzymatic activity/volume) 55 U/L 40-136 Serum or plasma aspartate aminotransferase measurement (enzymatic activity/ volume) 23 U/L 5-34 Serum or plasma alanine aminotransferase measurement (enzymatic activity/volume ) 38 U/L 0-55 Serum or plasma protein measurement (mass/volume) 7.2 g/dL 6.4-8.2 Serum or plasma albumin measurement (mass/volume) 4.3 g/dL 3.2-4.5 Lipase - 03/02/17 15:45 Lipase 25 U/L 8-78 Serum or plasma C reactive protein measurement (mass/volume) - 03/02/17 15:45 Serum or plasma C reactive protein measurement (mass/volume) 0.40 mg /dL 0.00-0.50 Encounters ACCT No. Visit Date/Time Discharge Status Pt. Type Provider Facility Loc./Unit Complaint [id number] 06/12/2014 14:25:00 06/12/2014 23:59:59 CLS Outpatient ANNETTA ROSS APRN [id number] 05/27/2014 17:26:00 05/27/2014 23:59:59 CLS Outpatient MIGUEL HEIKE HOPE Lacho [id number] 12/10/2013 15:35:00 12/10/2013 23:59:59 CLS Outpatient WILLIAM CRONIN APRN [id number] 10/31/2013 14:35:00 10/31/2013 23:59:59 CLS Outpatient ANNETTA ROSS APRN Queta [id number] 05/06/2013 15:36:00 05/06/2013 23:59:59 CLS Outpatient WILLIAM CRONIN APRN [id number] 03/26/2013 16:12:00 Document Registration [id number] 03/02/2017 15:26:00 03/02/2017 16:51:00 DIS Outpatient BENNETT SAHNI, LIZY Razo [facility] ER ABDOMINAL PAIN [id number] 11/21/2015 22:00:00 11/26/2015 10:55:00 DIS Inpatient SILVINA SAHNI, LORIN Dodge [facility] WS LT TUBO-OVARIAN ABSCESS [id number] 11/21/2015 23:48:00 Document Registration [id number] 05/22/2012 11:55:00 Document Registration [id number] 12/08/2010 05:43:00 Document Registration [id number] 12/06/2010 13:03:00 Document Registration [id number] 12/05/2010 20:45:00 Document Registration [id number] 10/05/2010 10:28:00 Document Registration [id number] 09/21/2010 09:35:00 Document Registration [id number] 07/27/2010 12:40:00 Document Registration [id number] 06/02/2010 14:37:00 Document Registration
[2018-03-06] MEDS ORDERED: RX-NAPROXEN (NAPROSYN) 250 MG TAB PPK#4 PO STA (00:10)
[2018-03-06] MEDS ORDERED: LIDO15SO2 MM (00:13)
[2018-03-06] MEDS ORDERED: NAPR-915 PO (00:13)
[2018-03-06] MEDS ORDERED: AMOX-358 PO (00:13)
--- NOTE | 2018-03-06 00:13 | ED EENT ---
History of Present Illness General Chief Complaint: Dental Problems/Pain Stated Complaint: DENTAL PAIN Nursing Triage Note: PATIENT STATES THAT SHE HAS BEEN HAVING SEVERE PAIN IN HER MOUTH ON THE RIGHT SIDE THAT SHOOTS UP THE SIDE OF HER FACE X1 HOUR. SHE STATES SHE HAD THIS SAME PAIN A YEAR AGO AND IT WAS HER WISDOM TOOTH. Allergies and Home Medications Allergies Coded Allergies: No Known Drug Allergies (Verified , 11/21/15) Home Medications Omeprazole 20 Mg Tablet.dr, 20 MG PO BID Prescribed by: LIZY CASTANEDA on 03/02/17 4134 Past Lyieapw-Dkbnou-Ovunfc Hx Patient Social History Alcohol Use: Denies Use Recreational Drug Use: No Smoking Status: Current Everyday Smoker 2nd Hand Smoke Exposure: Yes Recent Foreign Travel: No Contact w/Someone Who Travel: No Recent Infectious Disease Expo: No Recent Hopitalizations: No Physical Abuse: No Sexual Abuse: No Immunizations Up To Date Tetanus Booster (TDap): Unknown Past Medical History Surgeries: Yes ( x 2 and [facility]) Abdominal, Section Respiratory: No Cardiac: No Neurological: No Reproductive Disorders: Yes Sexually Transmitted Disease: Yes (HPV, HSV, chlamydia) Gastrointestinal: No Musculoskeletal: No Endocrine: No Cancer: No Psychosocial: No Nursing Suicide Risk Score: 0 Integumentary: Yes Herpes Blood Disorders: No Adverse Reaction/Blood Tranf: No Family Medical History Anxiety disorder G8 SISTER Diabetes mellitus 19 FATHER FH: anemia G8 SISTER FHx: lung disease 19 MOTHER Psychiatric condition G8 SISTER No Pertinent Family Hx Physical Exam Vital Signs Vital Signs - First Documented 03/05/18 23:53 Temp 97.0 Pulse 62 Resp 18 B/P (MAP) 134/88 (103) Pulse Ox 99 Height, Weight, BMI Height: 5'3.00" Weight: 175lbs. 0oz. 79.059863hn; 29.2 BMI Method:Stated Progress/Results/Core Measures Results/Orders My Orders Orders - YARIEL JOSHI DO Amoxicillin/Clavulanate Tablet (Augmenti (03/06/18 00:15) Lidocaine 2% Viscous 15 Ml (Xylocaine Vi (03/06/18 00:15) Rx-Naproxen (Rx-Naprosyn) (03/06/18 00:10) Vital Signs/I&O 03/05/18 23:53 Temp 97.0 Pulse 62 Resp 18 B/P (MAP) 134/88 (103) Pulse Ox 99 Blood Pressure Mean: 103 Departure Impression Primary Impression: impacted wisdom tooth Additional Impression: dental pain Disposition: 01 HOME, SELF-CARE Condition: Stable Departure-Patient Inst. Referrals: [facility] (PCP/Family) Primary Care Physician Patient Instructions: Dental Pain (DC), Impacted Tooth (DC) Add. Discharge Instructions: [place] [employer] FOLLOW UP WITH [facility] THIS WEEK FOR FURTHER CARE All discharge instructions reviewed with patient and/or family. Voiced understanding. Scripts Naproxen (Naproxen) 500 Mg Tablet 500 MG PO BID, #20 TAB Prov: YARIEL JOSHI DO 03/06/18 Lidocaine HCl (Lidocaine HCl Viscous) 15 Ml Solution 15 ML MM Q 1-2 HOURS for Pain, #100 ML Prov: YARIEL JOSHI DO 03/06/18 Amoxicillin/Potassium Clav (Augmentin 875-125 Tablet) 1 Each Tablet 1 EACH PO BID for INFECTION, #20 TAB Prov: YARIEL JOSHI DO 03/06/18 YARIEL JOSHI DO Mar 06, 2018 00:13
[2018-03-06] MEDS ORDERED: AUGMENTIN 875 MG TAB (AMOXICILLIN/CLAVULANATE) PO SCH (00:15)
[2018-03-06] MEDS ORDERED: LIDOCAINE 2% VISCOUS 15 ML UDC PO ONE (00:15)
[2018-03-06 00:25] VITALS: BP 134/88
== END 2018-03-06 00:25 | disposition home or self-care (01) ==
LOC: EDUNIT# 23:44 → ER 23:46
DX: K01.1 Impacted teeth (principal); K08.89 Other specified disorders of teeth and supporting structures; F17.200 Nicotine dependence, unspecified, uncomplicated; Z87.59 Personal history of other complications of pregnancy, childbirth and the puerperium; Z86.19 Personal history of other infectious and parasitic diseases
CPT/HCPCS: 99283

== ENCOUNTER 2020-04-22 21:38 | Emergency (ER) | payer MEDICAID, OTHER ==
[~2020-04-22 21:38] MED LIST changes: +AMOX-358 PO; +LIDO20SO23 MM; +METR-145 PO; -METR500T21 PO; +NAPR-915 PO
--- NOTE | 2020-04-22 22:04 | NUR ---
NO ANSWER TO PHONE NUMBER PROVIDED.
--- NOTE | 2020-04-22 22:09 | NUR ---
NO ANSWER TO PHONE NUMBER LEFT [phone]. MESSAGE LEFT.
--- NOTE | 2020-04-22 22:42 | NUR ---
NO ANSWER TO PHONE NUMBER PROVIDED.
== END 2020-04-22 23:00 | disposition left against medical advice (07) ==
LOC: EDUNIT# 21:38 → ER 21:40
DX: R10.9 Unspecified abdominal pain (principal); R06.02 Shortness of breath

== ENCOUNTER 2020-07-03 17:33 | Emergency (ER) | payer MEDICAID ==
[~2020-07-03] VITALS: Ht 63 cm; Wt 77.0 kg
[2020-07-03] MEDS ORDERED: NITR-65 PO (17:59)
[2020-07-03 18:00] LABS: BILIRUBIN,URINE NEGATIVE (NEGATIVE); COLOR,URINE YELLOW; GLUCOSE, URINE (UA) NEGATIVE (NEGATIVE); KETONES,URINE NEGATIVE (NEGATIVE); LEUKOCYTE ESTERASE ,URINE NEGATIVE (NEGATIVE); NITRITE,URINE NEGATIVE (NEGATIVE); PROTEIN,URINE 1+ (NEGATIVE)
[2020-07-03 18:08] LABS: BACTERIA,URINE TRACE /HPF; CLARITY,URINE SL CLOUDY; WBC,URINE 0-2 /HPF
--- NOTE | 2020-07-03 18:14 | ED Abdominal Pain ---
General Chief Complaint: - Urinary Stated Complaint: DX W/ UTI/NOT IMPROVING Nursing Triage Note: PT AMB TO TRIAGE PT CO OF R LOWER ABD PAIN AND R LOWER BACK PAIN FOR 3 DAYS, PT STATES WAS SEEN AT [facility] AND WAS PRESCRIBED MACROBID FOR UTI. PT STATES NO BETTER. PT STATES HAS HAD PAIN BEFORE AND ULTRA SOUND W NO ABNORMAL RESULTS Sepsis Screen: No Definite Risk Source of Information: Patient Exam Limitations: No Limitations History of Present Illness Date Seen by Provider: Jul 03, 2020 Time Seen by Provider: 17:54 Initial Comments Patient presents to the ER by private conveyance with chief complaint of 3-4 days right sided lower abdominal pain radiating up into her right upper quadrant and in her right back. She went to [facility] 3 days ago and was initiated on Macrobid for UTI after urinalysis was obtained. She denies history of kidney stone. Right now she rates the pain as a 6 out of 10 and says it is intermittent not associated with eating. There is no gas or bloating. She said a month ago she had her gallbladder worked up with an ultrasound but no further workup yet by primary care. She says she's had a abscess in her right lower quadrant surgically removed. Suspect she means tubo-ovarian abscess. She does have a history of STDs and is sexually active with males exclusively. She is having some malodorous discharge from the vagina. She says her dysuria improved after starting the antibiotic but her symptoms are still there with pain. She's not having any fevers nausea vomiting or diarrhea. Records indicate Dr. CASH drained a tubo-ovarian abscess in 2016, for years ago. Allergies and Home Medications Allergies Coded Allergies: No Known Drug Allergies (Verified , 11/21/15) Home Medications Hydrocodone/Acetaminophen 1 Each Tablet, 1 EACH PO Q6H PRN for PAIN-SEVERE (8- 10) Prescribed by: CHELLY DURON on 07/03/201926 Metronidazole 500 Mg Tablet, 500 MG PO BID Prescribed by: CHELLY DURON on 07/03/201925 Ondansetron 4 Mg Tab.rapdis, 4 MG PO Q6H PRN for NAUSEA/VOMITING Prescribed by: CHELLY DURON on 07/03/201925 Patient Home Medication List Home Medication List Reviewed: Yes Review of Systems Review of Systems Constitutional: No chills, No diaphoresis, No fever; malaise EENTM: No Blurred Vision, No Double Vision Respiratory: Denies Cough, Denies Shortness of Air Cardiovascular: Denies Chest Pain, Denies Lightheadedness Gastrointestinal: Denies Abdomen Distended; Abdominal Pain; Denies Constipated, Denies Diarrhea, Denies Nausea Genitourinary: Denies Burning; Discharge (malodorous) Musculoskeletal: back pain (right flank); No joint pain Skin: No pruritus, No rash All Other Systems Reviewed Negative Unless Noted: Yes Past Rnhnyra-Rmeqmp-Cufslw Hx Patient Social History Alcohol Use: Occasionally Uses Recreational Drug Use: No Smoking Status: Current Everyday Smoker Type Used: Cigarettes 2nd Hand Smoke Exposure: Yes Recent Foreign Travel: No Contact w/Someone Who Travel: No Recent Infectious Disease Expo: No Recent Hopitalizations: No Physical Abuse: No Sexual Abuse: No Immunizations Up To Date Tetanus Booster (TDap): Unknown Past Medical History Surgeries: Yes ( x 2 and CKC) Abdominal, Section Respiratory: No Cardiac: No Neurological: No Reproductive Disorders: Yes Sexually Transmitted Disease: Yes (HPV, HSV, chlamydia) Gastrointestinal: No Musculoskeletal: No Endocrine: No Cancer: No Psychosocial: No Integumentary: Yes Herpes Blood Disorders: No Adverse Reaction/Blood Tranf: No Family Medical History Anxiety disorder G8 SISTER Diabetes mellitus 19 FATHER FH: anemia G8 SISTER FHx: lung disease 19 MOTHER Psychiatric condition G8 SISTER No Pertinent Family Hx Physical Exam Vital Signs Vital Signs - First Documented 07/03/20 17:40 Temp 37.3 Pulse 94 Resp 18 B/P (MAP) 96/59 (71) Pulse Ox 100 Capillary Refill : Less Than 3 Seconds Height/Weight/BMI Height: 5'3.00" Weight: 175lbs. 0oz. 79.973987wt; 194.00 BMI Method:Stated General Appearance: WD/WN, mild distress HEENT: PERRL/EOMI, pharynx normal Neck: full range of motion, normal inspection Respiratory: lungs clear, normal breath sounds, no respiratory distress, no accessory muscle use Cardiovascular: normal peripheral pulses, regular rate, rhythm Gastrointestinal: normal bowel sounds, guarding, tenderness (and right lower quadrant and right upper quadrant) Genital/Rectal: normal genital exam, normal vaginal exam Extremities: normal range of motion, non-tender, normal capillary refill ( board.) Neurologic/Psychiatric: alert, normal mood/affect, oriented x 3 Skin: normal color, warm/dry (known [facility] on Monday but not today or tomorrow Erratically calculate his back on) Progress/Results/Core Measures Results/Orders Lab Results Laboratory Tests Test 07/03/20 17:46 07/03/20 18:28 07/03/20 18:55 Range/Units Urine Color YELLOW Urine Clarity SL CLOUDY Urine pH 7.0 5-9 Urine Specific [place] 1.020 1.016-1.022 Urine Protein 1+ H NEGATIVE Urine Glucose (UA) NEGATIVE NEGATIVE Urine Ketones NEGATIVE NEGATIVE Urine Nitrite NEGATIVE NEGATIVE Urine Bilirubin NEGATIVE NEGATIVE Urine Urobilinogen 4.0 < = 1.0 MG/DL Urine Leukocyte Esterase NEGATIVE NEGATIVE Urine RBC (Auto) 2+ H NEGATIVE Urine RBC 5-10 H /HPF Urine WBC 0-2 /HPF Urine Squamous Epithelial Cells 5-10 /HPF Urine Crystals NONE /LPF Urine Bacteria TRACE /HPF Urine Casts NONE /LPF Urine Mucus SMALL H /LPF Urine Culture Indicated NO White Blood Count 12.4 H 4.3-11.0 10^3/uL Red Blood Count 4.03 3.80-5.11 10^6/uL Hemoglobin 12.7 11.5-16.0 g/dL Hematocrit 39 35-52 % Mean Corpuscular Volume 96 80-99 fL Mean Corpuscular Hemoglobin 32 25-34 pg Mean Corpuscular Hemoglobin Concent 33 32-36 g/dL Red Cell Distribution Width 12.3 10.0-14.5 % Platelet Count 227 130-400 10^3/uL Mean Platelet Volume 11.6 9.0-12.2 fL Immature Granulocyte % (Auto) 0 % Neutrophils (%) (Auto) 79 H 42-75 % Lymphocytes (%) (Auto) 10 L 12-44 % Monocytes (%) (Auto) 11 0-12 % Eosinophils (%) (Auto) 0 0-10 % Basophils (%) (Auto) 0 0-10 % Neutrophils # (Auto) 9.7 H 1.8-7.8 10^3/uL Lymphocytes # (Auto) 1.2 1.0-4.0 10^3/uL Monocytes # (Auto) 1.3 H 0.0-1.0 10^3/uL Eosinophils # (Auto) 0.1 0.0-0.3 10^3/uL Basophils # (Auto) 0.0 0.0-0.1 10^3/uL Immature Granulocyte # (Auto) 0.1 0.0-0.1 10^3/uL Sodium Level 139 135-145 MMOL/L Potassium Level 3.3 L 3.6-5.0 MMOL/L Chloride Level 100 98-107 MMOL/L Carbon Dioxide Level 26 21-32 MMOL/L Anion Gap 13 5-14 MMOL/L Blood Urea Nitrogen 11 7-18 MG/DL Creatinine 0.77 0.60-1.30 MG/DL Estimat Glomerular Filtration Rate > 60 BUN/Creatinine Ratio 14 Glucose Level 100 70-105 MG/DL Calcium Level 8.9 8.5-10.1 MG/DL Corrected Calcium 8.8 8.5-10.1 MG/DL Total Bilirubin 1.2 H 0.1-1.0 MG/DL Aspartate Amino Transf (AST/SGOT) 29 5-34 U/L Alanine Aminotransferase (ALT/SGPT) 55 0-55 U/L Alkaline Phosphatase 76 40-136 U/L C-Reactive Protein High Sensitivity 33.53 H 0.00-0.50 MG/DL Total Protein 8.1 6.4-8.2 GM/DL Albumin 4.1 3.2-4.5 GM/DL Lipase 16 8-78 U/L My Orders Orders - CHELLY DURON Cbc With Automated Diff (07/03/20 18:06) Comprehensive Metabolic Panel (07/03/20 18:06) Hs C Reactive Protein (07/03/20 18:06) Lipase (07/03/20 18:06) Urine Bedside (07/03/20 18:06) Ketorolac Injection (Toradol Injection) (07/03/20 18:15) Pantoprazole Injection (Protonix Injecti (07/03/20 18:15) Wet Prep (07/03/20 18:06) Neisseria Gonorrhea Swab (07/03/20 18:06) Chlamydia Trachomatis Swab (07/03/20 18:06) Ceftriaxone For Iv Use (Rocephin For I (07/03/20 18:15) Azithromycin Tablet (Zithromax Tablet) (07/03/20 18:15) Medications Given in ED Current Medications Medications Dose Ordered Sig/Anika Route Start Time Stop Time Status Last Admin Dose Admin Azithromycin 1,000 mg ONCE ONCE PO 07/03/20 18:15 07/03/20 18:16 DC 07/03/20 18:45 1,000 MG Ceftriaxone Sodium 1000 mg/ Sterile Water 10 ml @ 200 mls/hr ONCE ONCE IV 07/03/20 18:15 07/03/20 18:17 DC 07/03/20 18:43 200 MLS/HR Ketorolac Tromethamine 30 mg ONCE ONCE IVP 07/03/20 18:15 07/03/20 18:16 DC 07/03/20 18:42 30 MG Pantoprazole 40 mg ONCE ONCE IV 07/03/20 18:15 07/03/20 18:16 DC 07/03/20 18:43 40 MG Vital Signs/I&O 07/03/20 17:40 Temp 37.3 Pulse 94 Resp 18 B/P (MAP) 96/59 (71) Pulse Ox 100 Blood Pressure Mean: 71 Progress Progress Note #1: Time: 18:11 Progress Note Differential includes pelvic inflammatory disease, UTI with resistant bug, appendicitis, cholecystitis, Pyelonephritis. Plan to test her for STDs. Obtain a Wet prep give her a dose of Rocephin and azithromycin. If her labs are off we may include a CT otherwise outpatient pelvic ultrasound would be more appropriate. Toradol after a bedside is negative. Pantoprazole. Progress Note #2: Time: 19:21 Progress Note Wet prep is negative for yeast and Trichomonas. Rare white blood cell positive clue cells. Plan to put her on Flagyl and probiotics. Suspect she may have PID versus possible TOA. After a gram of Rocephin and a gram of azithromycin that she should be covered for now. She is comfortable. We'll let her follow up outpatient for an ultrasound with return precautions. Departure Impression Primary Impression: Bacterial vaginitis Additional Impression: suspect PID Disposition: 01 HOME, SELF-CARE Condition: Stable Departure-Patient Inst. Decision time for Depature: 19:20 Referrals: [facility] (PCP/Family) Primary Care Physician IMER CASH DO Patient Instructions: Bacterial Vaginosis (DC), Pelvic Inflammatory Disease Add. Discharge Instructions: You have a bacterial overgrowth of the vagina. This is not thought to be sexually transmitted. We'll put you on Flagyl twice daily with food for the next week to treat this. I suspect you may also have bacteria that has made it through the cervix into your pelvis which is called pelvic inflammatory disease. Plan to get ultrasound outpatient of your pelvis to rule out abscess. If your symptoms are not improving in the next 2 days then you should follow-up in the ER or with Dr. CASH by calling for an appointment in his clinic. You may follow-up with Dr. CASH next week to review the results of your ultrasound. I will also forward the results to the ER doctor and if anything needs to be done about it they can call you. Alternatively if you are feeling better you may follow-up with your primary care doctor to discuss the results. Tylenol and ibuprofen as necessary for pain. If you have intractable severe pain you may use the hydrocodone one tablet every 6 hours as necessary. It will cause drowsiness and constipation. A dose of MiraLAX daily can combat the constipation. All discharge instructions reviewed with patient and/or family. Voiced understanding. Scripts Ondansetron (Ondansetron Odt) 4 Mg Tab.rapdis 4 MG PO Q6H PRN for NAUSEA/VOMITING, #8 TAB 0 Refills Prov: CHELLY DURON 07/03/20 Hydrocodone/Acetaminophen (Hydrocodone-Acetamin 5-325 mg) 1 Each Tablet 1 EACH PO Q6H PRN for PAIN-SEVERE (8-10), #8 TAB 0 Refills Prov: CHELLY DURON 07/03/20 Metronidazole (Flagyl) 500 Mg Tablet 500 MG PO BID for 7 Days, #14 TAB 0 Refills Prov: CHELLY DURON 07/03/20 Work/School Note: Work Release Form Date Seen in the Emergency Department: Jul 03, 2020 Return to Work: Jul 04, 2020 Restrictions: No Restrictions Copy Copies To 1: IMER CASH TITUS J Jul 03, 2020 18:14
[2020-07-03] MEDS ORDERED: cefTRIAXone FOR IV USE 1,000 MG in WATER (STERILE) FOR INJECTION 10 ML IV ONE (18:15)
[2020-07-03] MEDS ORDERED: PANTOPRAZOLE 40 MG (PROTONIX) VIAL IV ONE (18:15)
[2020-07-03] MEDS ORDERED: KETOROLAC 30 MG/ML VIAL IVP ONE (18:15)
[2020-07-03] MEDS ORDERED: AZITHROMYCIN 250 MG TAB (ZITHROMAX) PO ONE (18:15)
[2020-07-03 18:39] LABS: BASOPHILS % (AUTO) 0 % (0-10); EOSINOPHILS # (AUTO) 0.1 10^3/uL (0.0-0.3); EOSINOPHILS % (AUTO) 0 % (0-10); HEMATOCRIT 39 % (35-52); HEMOGLOBIN 12.7 g/dL (11.5-16.0); LYMPHOCYTES # (AUTO) 1.2 10^3/uL (1.0-4.0); LYMPHOCYTES % (AUTO) 10 % (12-44); MEAN CORPUSCULAR HEMOGLOBIN 32 pg (25-34); MEAN CORPUSCULAR HGB CONC 33 g/dL (32-36); MEAN CORPUSCULAR VOLUME 96 fL (80-99); MEAN PLATELET VOLUME 11.6 fL (9.0-12.2); MONOCYTES # (AUTO) 1.3 10^3/uL (0.0-1.0); MONOCYTES % (AUTO) 11 % (0-12); NEUTROPHILS # (AUTO) 9.7 10^3/uL (1.8-7.8); NEUTROPHILS % (AUTO) 79 % (42-75); PLATELET COUNT 227 10^3/uL (130-400); WHITE BLOOD COUNT 12.4 10^3/uL (4.3-11.0)
[2020-07-03 18:56] LABS: ALBUMIN 4.1 GM/DL (3.2-4.5); CHLORIDE 100 MMOL/L (98-107); POTASSIUM 3.3 MMOL/L (3.6-5.0); SODIUM 139 MMOL/L (135-145)
[2020-07-03 18:57] LABS: CALCIUM 8.9 MG/DL (8.5-10.1)
[2020-07-03 18:58] LABS: GLUCOSE 100 MG/DL (70-105)
[2020-07-03 18:59] LABS: TOTAL PROTEIN 8.1 GM/DL (6.4-8.2)
[2020-07-03 19:00] LABS: BILIRUBIN,TOTAL 1.2 MG/DL (0.1-1.0); CARBON DIOXIDE 26 MMOL/L (21-32)
[2020-07-03 19:02] LABS: ALKALINE PHOSPHATASE 76 U/L (40-136); CREATININE SERUM 0.77 MG/DL (0.60-1.30); GFR ESTIMATED > 60
[2020-07-03 19:03] LABS: BUN/CREATININE RATIO 14
[2020-07-03 19:05] LABS: ALANINE AMINOTRANSFERASE 55 U/L (0-55)
[2020-07-03 19:06] LABS: LIPASE 16 U/L (8-78)
[2020-07-03] MEDS ORDERED: ONDA4TAB11 PO (19:26)
[2020-07-03] MEDS ORDERED: METR500T PO (19:26)
[2020-07-03] MEDS ORDERED: ACHD5005 PO (19:26)
[2020-07-03 19:50] VITALS: BP 120/56
== END 2020-07-03 19:50 ==
LOC: EDUNIT# 17:33 → ER 17:35
DX: N76.0 Acute vaginitis (principal); F17.210 Nicotine dependence, cigarettes, uncomplicated; Z83.3 Family history of diabetes mellitus
CPT/HCPCS: 36415; 80053; 81000; 83690; 85025; 86141; 87210; 87491; 87591

== ENCOUNTER → 2020-07-07 | Outpatient (CLI) | payer MEDICAID ==
[~2020-07-07] MED LIST changes: +ACHD5005 PO; +METR500T PO; +ONDA4TAB11 PO
--- NOTE | 2020-07-07 11:23 | Diagnostic Imaging Report ---
PROCEDURE: US Non-ob pelvis comp/trans. INDICATION: Right-sided pelvic pain. TECHNIQUE: Multiple real time verdugo scale sonographic images were obtained of the pelvis transabdominally and endovaginally. CORRELATION STUDY: None FINDINGS: UTERUS: 7.5 x 4.1 x 5.5 cm. The uterus appears unremarkable. ENDOMETRIUM: 12 mm. The endometrium appearing unremarkable. RIGHT OVARY: 3.0 x 2.7 x 3.1 cm There is a complex, probable hemorrhagic cyst right ovary 2.2 x 1.5 x 1.5 cm. Blood flow is demonstrated the right ovary. LEFT OVARY: Not visualized. Small amount of fluid in the right adnexa, within physiologic range. IMPRESSION: 1. There is approximately 2.2 cm complex cystic mass right ovary. Perhaps a hemorrhagic cyst. Small amount of pelvic fluid right adnexa. Dictated by: Dictated on workstation # [id number]
== END ==
LOC: RAD 10:31
PROVIDERS: ATTEND Emergency Medicine
DX: N83.291 Other ovarian cyst, right side (principal)
CPT/HCPCS: 76830; 76856

== ENCOUNTER 2021-03-16 20:07 | Emergency (ER) | payer MEDICAID ==
[~2021-03-16] VITALS: Ht 160 cm; Wt 67.3 kg
--- NOTE | 2021-03-16 20:23 | ED General ---
General Stated Complaint: COUGH, BODY ACHES, LOREDO, CONGESTION Source of Information: Patient Exam Limitations: No Limitations History of Present Illness Date Seen by Provider: Mar 16, 2021 Time Seen by Provider: 20:21 Initial Comments Patient is a 35-year-old female who presents to the emergency department with a chief complaint of left-sided chest pain, congestion, cough, body aches a little diarrhea. She states that she has had symptoms for about a week. She endorses headache. She states she has been taking some tiam-wnd-wdjnnln ibuprofen, using Vicks and some nasal steroids as well as allergy medicine for the past week. She went to [facility] walk-in a week ago was tested for Covid and reportedly it was negative. Patient is not vaccinated. She is a smoker. Patient is concerned about having "fluid in my lungs". She denies any abdominal pain, nausea or vomiting. She does have again body aches all over with aches down into her legs but no swelling in her legs. Allergies and Home Medications Allergies Coded Allergies: No Known Drug Allergies (Verified , 11/21/15) Home Medications Azithromycin 250 Mg Tablet, 250 MG PO UD TAKE 2 TABLETS ON DAY ONE THEN TAKE 1 TABLET DAILY FOR FOUR MORE DAYS Prescribed by: DAWNA MCCALL on 03/16/212218 Benzonatate 100 Mg Capsule, 200 MG PO TID Prescribed by: DAWNA MCCALL on 03/16/212218 Hydrocodone/Acetaminophen 1 Each Tablet, 1 EACH PO Q6H PRN for PAIN-SEVERE (8- 10) Prescribed by: CHELLY DURON on 07/03/201926 Metronidazole 500 Mg Tablet, 500 MG PO BID Prescribed by: CHELLY DURON on 07/03/201925 Ondansetron 4 Mg Tab.rapdis, 4 MG PO Q6H PRN for NAUSEA/VOMITING Prescribed by: CHELLY DURON on 07/03/201925 Patient Home Medication List Home Medication List Reviewed: Yes Review of Systems Review of Systems Constitutional: see HPI EENTM: nose congestion Respiratory: cough, short of breath Cardiovascular: chest pain Gastrointestinal: diarrhea Genitourinary: no symptoms reported : No Musculoskeletal: muscle cramps Skin: no symptoms reported Psychiatric/Neurological: No Symptoms Reported All Other Systems Reviewed Negative Unless Noted: Yes Past Rrxvyqp-Anorvc-Xhlrsw Hx Immunizations Up To Date Tetanus Booster (TDap): Unknown Past Medical History Surgeries: Yes ( x 2 and CKC) Abdominal, Section Respiratory: No Cardiac: No Neurological: No Reproductive Disorders: Yes Sexually Transmitted Disease: Yes (HPV, HSV, chlamydia) Gastrointestinal: No Musculoskeletal: No Endocrine: No Cancer: No Psychosocial: No Integumentary: Yes Herpes Blood Disorders: No Adverse Reaction/Blood Tranf: No Family Medical History Anxiety disorder G8 SISTER Diabetes mellitus 19 FATHER FH: anemia G8 SISTER FHx: lung disease 19 MOTHER Psychiatric condition G8 SISTER No Pertinent Family Hx Physical Exam Vital Signs Vital Signs - First Documented Capillary Refill : Height, Weight, BMI Height: 5'3.00" Weight: 175lbs. 0oz. 79.166729ys; 194.00 BMI Method:Stated General Appearance: No Apparent Distress, WD/WN Eyes: Bilateral Eye Normal Inspection, Bilateral Eye PERRL, Bilateral Eye EOMI HEENT: PERRL/EOMI, TMs Normal, Moist Mucous Membranes, Other (nasal congestion) Neck: Full Range of Motion, Non Tender, Supple Respiratory: Lungs Clear, Normal Breath Sounds, No Accessory Muscle Use, No Respiratory Distress Cardiovascular: Regular Rate, Rhythm, Tachycardia Gastrointestinal: Non Tender, Soft Extremity: Normal Capillary Refill, Normal Inspection, Normal Range of Motion, Non Tender, No Calf Tenderness Neurologic/Psychiatric: Alert, Oriented x3, No Motor/Sensory Deficits, Normal Mood/Affect Skin: Normal Color, Warm/Dry Progress/Results/Core Measures Suspected Sepsis SIRS Temperature: Pulse: Respiratory Rate: Laboratory Tests 03/16/21 20:30: White Blood Count 10.3 Blood Pressure / Mean: Laboratory Tests 03/16/21 20:30: Creatinine 0.75, Platelet Count 312 Results/Orders Lab Results Laboratory Tests Test 03/16/21 20:30 Range/Units White Blood Count 10.3 4.3-11.0 10^3/uL Red Blood Count 4.30 3.80-5.11 10^6/uL Hemoglobin 13.8 11.5-16.0 g/dL Hematocrit 41 35-52 % Mean Corpuscular Volume 96 80-99 fL Mean Corpuscular Hemoglobin 32 25-34 pg Mean Corpuscular Hemoglobin Concent 33 32-36 g/dL Red Cell Distribution Width 12.3 10.0-14.5 % Platelet Count 312 130-400 10^3/uL Mean Platelet Volume 11.4 9.0-12.2 fL Immature Granulocyte % (Auto) 0 % Neutrophils (%) (Auto) 74 42-75 % Lymphocytes (%) (Auto) 15 12-44 % Monocytes (%) (Auto) 10 0-12 % Eosinophils (%) (Auto) 1 0-10 % Basophils (%) (Auto) 1 0-10 % Neutrophils # (Auto) 7.7 1.8-7.8 10^3/uL Lymphocytes # (Auto) 1.5 1.0-4.0 10^3/uL Monocytes # (Auto) 1.0 0.0-1.0 10^3/uL Eosinophils # (Auto) 0.1 0.0-0.3 10^3/uL Basophils # (Auto) 0.1 0.0-0.1 10^3/uL Immature Granulocyte # (Auto) 0.0 0.0-0.1 10^3/uL Sodium Level 137 135-145 MMOL/L Potassium Level 3.4 L 3.6-5.0 MMOL/L Chloride Level 102 98-107 MMOL/L Carbon Dioxide Level 24 21-32 MMOL/L Anion Gap 11 5-14 MMOL/L Blood Urea Nitrogen 9 7-18 MG/DL Creatinine 0.75 0.60-1.30 MG/DL Estimat Glomerular Filtration Rate 88 BUN/Creatinine Ratio 12 Glucose Level 90 70-105 MG/DL Calcium Level 9.5 8.5-10.1 MG/DL Influenza Type A (RT-PCR) Not Detected Not Detecte Influenza Type B (RT-PCR) Not Detected Not Detecte SARS-CoV-2 RNA (RT-PCR) Not Detected Not Detecte My Orders Orders - DAWNA MCCALL MD Covid 19 Inhouse Test (03/16/21 20:39) Ed Iv/Invasive Line Start (03/16/21 20:39) Cbc With Automated Diff (03/16/21 20:39) Basic Metabolic Panel (03/16/21 20:39) Chest 1 View, Ap/Pa Only (03/16/21 20:39) Influenza A And B By Pcr (03/16/21 20:39) Ketorolac Injection (Toradol Injection) (03/16/21 20:45) Ns Iv 1000 Ml (Sodium Chloride 0.9%) (03/16/21 20:45) Ekg Tracing (03/16/21 20:41) Medications Given in ED Current Medications Medications Dose Ordered Sig/Anika Route Start Time Stop Time Status Last Admin Dose Admin Ketorolac Tromethamine 15 mg ONCE ONCE IVP 03/16/21 20:45 03/16/21 20:46 DC 03/16/21 21:01 15 MG Vital Signs/I&O 03/16/21 03/16/21 03/16/21 20:44 20:44 23:14 Temp 36.6 Pulse 120 76 Resp 18 20 B/P (MAP) 135/105 (115) 115/90 Pulse Ox 100 98 O2 Delivery Room Air Room Air Room Air Capillary Refill : Progress Note : Time: 22:16 Progress Note Patient reevaluated after fluids, labs and chest x-ray. Covid test is negative, influenza is negative. Labs are unremarkable. Patient will be sent home with azithromycin as well as instructions for increased fluids, Tylenol and ibuprofen. She verbalizes understanding, is comfortable with the plan of care. All questions are sought and answered. Patient is stable for discharge. ECG Initial ECG Impression Date: Mar 16, 2021 Initial ECG Impression Time: 22:25 Initial ECG Rate: 111 Initial ECG Rhythm: S.Tach Initial ECG Intervals: Normal Initial ECG Impression: Normal Diagnostic Imaging Diagonstic Imaging: Xray Plain Films/CT/US/NM/MRI: chest Comments [facility], [place] NAME: STANLEY PELAYO [facility] REC#: [id number] PT STATUS: REG ER : 1985 PHYSICIAN: DAWNA MCCALL MD ADMIT DATE: 03/16/21/ER Signed Date of Exam:03/16/21 CHEST 1 VIEW, AP/PA ONLY INDICATION: Lower respiratory infection. EXAM: Portable chest at 9:28 PM FINDINGS: The heart size and pulmonary vascularity are normal. Lungs are clear. There are no effusions or pneumothoraces. IMPRESSION: Negative chest. Dictated by: Dictated on workstation # [id number] Dict: 03/16/214 Trans: 03/16/212204 [facility] [id number] Interpreted by: QUYNH RIOS MD Electronically signed by: QUYNH RIOS MD 03/16/21 9195 Departure Impression Primary Impression: Bronchitis Disposition: 01 HOME, SELF-CARE Condition: Stable Departure-Patient Inst. Decision time for Depature: 22:18 Referrals: [facility] (PCP/Family) Primary Care Physician Patient Instructions: Acute Bronchitis, Adult (DC) Add. Discharge Instructions: Drink lots of fluids to stay well-hydrated. Take your antibiotics as prescribed starting tomorrow. Use your Flonase nasal spray for nasal congestion. You can obtain ngrf-kys-nswsnxt DayQuil or NyQuil medications for congestion as well. Return to the emergency room for high fever, increasing shortness of breath or cough or any other emergent concerning symptoms. Follow-up with your primary care physician. Scripts Benzonatate (TESSALON PERLES) 100 Mg Capsule 200 MG PO TID for cough, #15 CAP Prov: DAWNA MCCALL MD 03/16/21 Azithromycin (Azithromycin) 250 Mg Tablet 250 MG PO UD, #6 TAB TAKE 2 TABLETS ON DAY ONE THEN TAKE 1 TABLET DAILY FOR FOUR MORE DAYS Prov: DAWNA MCCALL MD 03/16/21 DAWNA MCCALL MD Mar 16, 2021 20:23
[2021-03-16] MEDS ORDERED: KETOROLAC 30 MG/ML VIAL IVP ONE (20:45)
[2021-03-16] MEDS ORDERED: NS IV 1000 ML 1,000 ML IV SCH (20:45)
[2021-03-16 20:47] LABS: BASOPHILS # (AUTO) 0.1 10^3/uL (0.0-0.1); BASOPHILS % (AUTO) 1 % (0-10); EOSINOPHILS # (AUTO) 0.1 10^3/uL (0.0-0.3); EOSINOPHILS % (AUTO) 1 % (0-10); HEMATOCRIT 41 % (35-52); HEMOGLOBIN 13.8 g/dL (11.5-16.0); LYMPHOCYTES # (AUTO) 1.5 10^3/uL (1.0-4.0); LYMPHOCYTES % (AUTO) 15 % (12-44); MEAN CORPUSCULAR HEMOGLOBIN 32 pg (25-34); MEAN CORPUSCULAR HGB CONC 33 g/dL (32-36); MEAN CORPUSCULAR VOLUME 96 fL (80-99); MEAN PLATELET VOLUME 11.4 fL (9.0-12.2); MONOCYTES % (AUTO) 10 % (0-12); NEUTROPHILS # (AUTO) 7.7 10^3/uL (1.8-7.8); NEUTROPHILS % (AUTO) 74 % (42-75); PLATELET COUNT 312 10^3/uL (130-400); WHITE BLOOD COUNT 10.3 10^3/uL (4.3-11.0)
[2021-03-16 21:02] LABS: CALCIUM 9.5 MG/DL (8.5-10.1); CREATININE SERUM 0.75 MG/DL (0.60-1.30); POTASSIUM 3.4 MMOL/L (3.6-5.0)
--- NOTE | 2021-03-16 21:35 | Diagnostic Imaging Report ---
INDICATION: Lower respiratory infection. EXAM: Portable chest at 9:28 PM FINDINGS: The heart size and pulmonary vascularity are normal. Lungs are clear. There are no effusions or pneumothoraces. IMPRESSION: Negative chest. Dictated by: Dictated on workstation # [id number]
[2021-03-16] MEDS ORDERED: AZIT250T12 PO (22:19)
[2021-03-16] MEDS ORDERED: BENZ100C18 PO (22:19)
[2021-03-16 23:14] VITALS: BP 115/90
== END 2021-03-16 22:36 | disposition home or self-care (01) ==
LOC: EDUNIT# 20:07 → ER 20:12
DX: J40 Bronchitis, not specified as acute or chronic (principal); F17.210 Nicotine dependence, cigarettes, uncomplicated; Z20.822 Contact with and (suspected) exposure to COVID-19
CPT/HCPCS: 36415; 71045; 80048; 85025; 87636; 93005